=== PATIENT | female | born 1940 | race Caucasian/White ===

== ENCOUNTER 2017-02-01 10:43 | Inpatient (IN) | payer OTHER, BC ==
[2017-01-29 14:45] VITALS: BMI 37.8
[2017-02-01] MEDS ORDERED: BUPIVACAINE HCL/PF 0.5% (5MG/ML) 10 ML VIAL ONE (13:11)
[2017-02-01] MEDS ORDERED: PROPOFOL 20 ML ONE (13:23)
[2017-02-01] MEDS ORDERED: ROCURONIUM BROMIDE 50 MG/5 ML VIAL ONE (13:24)
[2017-02-01] MEDS ORDERED: MIDAZOLAM HCL 2 MG/2 ML SINGLE DOSE VIAL ONE (13:24)
--- NOTE | 2017-02-01 13:29 | HP ---
Admitting History and Physical - Admission Chief Complaint: epigastric pain History of Present Illness: Patient with lap-band for many years. Band now causing vomiting, acid reflux, and band slipped on UGI. History Source: Patient - Past Medical History CULINARY MANAGER: No: Alzheimer's, CVA, Dementia, Migraine, Multiple Sclerosis, Peripheral Neuropathy, Parkinson's, Seizure, Syncope, TIA, Vertigo, Other Cardiovascular: No: AFIB, Aneurysm, Aortic Insufficiency, Aortic Stenosis, CAD, CHF, Deep Vein Thrombosis, HTN, Hyperlipdemia, MD, Mitral Insufficiency, Mitral Stenosis, Murmur, Pulmonary Hypertension, Other Pulmonary: No: Asthma, Bronchitis, Cancer, COPD, O2 Dependent, Pneumonia, Previously Intubated, Pulmonary Embolus, Pulmonary Fibrosis, Sleep Apnea, Other Gastrointestinal: No: Ascites, Cancer, Constipation, Crohn's Disease, Diverticulitis, Diverticulosis, Esophageal Varices, Gastritis, GERD, GI Bleed, Hemorrhoids, Hiatal Hernia, Inflamatory Bowel Disease, Irritable Bowel Disease, Pancreatitis, Peptic Ulcer Disease, Ulcerative Colitis, Other Hepatobiliary: No: Cirrhosis, Cholelithiasis, Cholecystitis, Choledocholithiasis , Hepatitis A, Hepatitis B, Hepatitis C, Other Renal/: No: Renal Failure, Renal Inusuff, BPH, Cancer, Hematuria, Hemodialysis , Neurogenic Bladder, Renal Calculi, UTI, Other Reproductive: No: Ectopic , Endometriosis, Fibroids, PID, Polycystic Ovary Syndrome, Postmenopausal, Other ...: No Heme/Onc: No: Anemia, B12 Deficiency, Bleeding Disorder, Cancer, Current Chemotherapy, Current Radiation Therapy, Hemochromatosis, Hypercoaguable State, Myeloproliferative Synd, Sickle Cell Disease, Sickle Cell Trait, Thrombocytopenia, Other Infectious Disease: No: AIDS, C-Diff, Herpes Zoster, HIV, MRSA, STD's, Tuberculosis, VREF, Other Psych: No: Addictions, Anxiety, Bipolar, Depression, Panic, Psychosis, Schizophrenia, Other Musculoskeletal: Yes: Osteoarthritis Rheumatology: No: Fibromyalgia, Gout, Lupus, Rheumatoid Arthritis, Sarcoidosis, Vasculitis, Other ENT: No: Allergic Rhinitis, Sinusitis, Other Endocrine: No: Melcher [place]'s Disease, [place]'s Disease, Diabetes Insipidus, Diabetes Mellitus, Hyperparathyroidism, Hyperthyroidism, Hypothyroidism, Osteopenia, SIADH, Other Dermatology: No: Basal Cell, Cellulitis, Eczema, Melanoma, Psoriasis, Squamous Cell, Other Additional Past Medical History: Pt with hypertension, thyroid nodule - Past Surgical History Past Surgical History: No: None, AAA Repair, AICD, Amputation, Appendectomy, Arthrosocopy (I- Malfunctioning gastric band secondary to slippage GERD Vomiting P- Or for removal of Gastric Band plus subcutaneous port), AV Fistula/ Graft, Bariatric Surgery, Breast Biopsy, Bypass, CABG, Carotid Endarterectomy, Cataract Removal, Cholecystectomy, Colectomy, Colonoscopy, Colostomy, Craniotomy , , Cystectomy, Hernia Repair, Hysterectomy, Ileal Conduit, Ileosotomy , Joint Replacement, Kidney Transplant, Laminectomy, Liver Transplant, Mastectomy, Nephrectomy, Oopherectomy, Orchiectomy, Permanent Pacemaker, Prostatectomy, Splenectomy, Stent, Thoracotomy, TURP, Tonsillectomy, Tubal Ligation, Upper Endoscopy, Valve Replacement, Vasectomy, Vein Stripping/Ligation - Smoking History Smoking history: Never smoked - Alcohol/Substance Use Hx Alcohol Use: No Home Medications - Allergies Allergies/Adverse Reactions: Allergies Allergy/AdvReac Type Severity Reaction Status Date / Time ibuprofen [From Motrin] Allergy Verified 02/01/17 11:34 - Home Medications Home Medications: Ambulatory Orders Aspirin [ASA -] 81 mg PO DAILY 01/29/17 Cholecalciferol (Vitamin D3) [Vitamin D3] 50,000 unit PO WEEKLY 01/29/17 Meclizine HCl 12.5 mg PO PRN PRN 01/29/17 Meloxicam [Mobic] 7.5 mg PO PRN 01/29/17 Oxycodone HCl/Acetaminophen [Percocet 10-325 mg Tablet] 1 each PO PRN PRN Acetaminophen [Tylenol] 650 mg PO PRN PRN 02/01/17 Furosemide [Lasix] 20 mg PO PRN PRN 02/01/17 Multivitamin/Iron/Folic Acid [Centrum Women Tablet] 1 each PO DAILY 02/01/17 Physical Examination Vital Signs: Vital Signs Temperature 97.8 F 02/01/17 11:27 Pulse Rate 96 H 02/01/17 11:27 Respiratory Rate 20 02/01/17 11:27 Blood Pressure 151/88 02/01/17 11:27 O2 Sat by Pulse Oximetry (%) 95 02/01/17 11:27
[2017-02-01] MEDS ORDERED: DEXAMETHASONE SOD PHOSPHATE 4 MG/1 ML VIAL ONE (13:32)
[2017-02-01] MEDS ORDERED: DESFLURANE GAS 240 ML BOTTLE IH ONE (13:43)
[2017-02-01] MEDS ORDERED: ceFAZolin SODIUM 1 GM VIAL ONE (13:47)
[2017-02-01] MEDS ORDERED: ceFAZolin SODIUM 1 GM VIAL IVPB ONE (13:47)
[2017-02-01] MEDS ORDERED: SODIUM CHLORIDE 0.9% P/F 10 ML VIAL IJ ONE ×2 (13:47→13:57)
[2017-02-01] MEDS ORDERED: PHENYLEPHRINE HCL 10 MG/1 ML SINGLE DOSE VIAL ONE (13:54)
[2017-02-01] MEDS ORDERED: ISOSULFAN BLUE 10 MG/ML VIAL SQ ONE (14:44)
[2017-02-01] MEDS ORDERED: BUPIVACAINE HCL/PF 0.5% (5MG/ML) 10 ML VIAL IJ ONE ×2 (14:49→16:11)
[2017-02-01] MEDS ORDERED: NEOSTIGMINE METHYLSULFATE 0.5 MG/ML - 10 ML MDV ONE (16:05)
[2017-02-01] MEDS ORDERED: ACETAMINOPHEN 325 MG TABLET (FP) PO PRN ×3 (16:24→17:19)
[2017-02-01] MEDS ORDERED: PROMETHAZINE HCL 50 MG/1 ML AMP IM PRN (16:24)
[2017-02-01] MEDS ORDERED: ONDANSETRON 4 MG/2 ML VIAL IVPB PRN (16:24)
[2017-02-01] MEDS ORDERED: TRIMETHOBENZAMIDE HCL 200MG/2ML INJ IM PRN (16:24)
[2017-02-01] MEDS ORDERED: OXYCODONE/APAP 5/325MG COMBO TABLET PO PRN ×2 (16:29→16:30)
[2017-02-01] MEDS ORDERED: DEXTROSE 5%-0.45% SALINE 1,000 ML IV SCH (16:30)
[2017-02-01] MEDS ORDERED: ONDANSETRON 4 MG/2 ML VIAL IVPUSH PRN (16:34)
[2017-02-01] MEDS ORDERED: HYDROmorphone HCL CARPU-JECT 1 MG/1 ML DISP.SYRIN IVPUSH PRN (16:34)
[2017-02-01] MEDS ORDERED: ACETAMINOPHEN 1000 MG/100 ML VIAL (NON FORMULARY) IVPB ONE (16:35)
[2017-02-01] MEDS ORDERED: LACTATED RINGERS SOLUTION 1,000 ML IV SCH (16:45)
[2017-02-01] MEDS ORDERED: oxyCODONE HCL 5 MG TABLET PO PRN (17:15)
[2017-02-01 18:30] LABS: CALCIUM 8.8 mg/dL (8.5-10.1); COCKROFT - GAULT 74.205
[2017-02-01 18:36] LABS: MCH 30.1 pg (25.7-33.7); MCHC 33.2 g/dl (32.0-36.0); MEAN CELL VOLUME 90.7 fl (80-96); MEAN PLT VOLUME 9.3 fl (7.5-11.1); PLATELET COUNT 205 K/MM3 (134-434); RDW 14.2 % (11.6-15.6); WHITE BLOOD COUNT 10.5 K/mm3 (4.0-10.0)
[2017-02-01] MEDS: oxyCODONE HCL 5 MG TABLET PO PRN ×2 (20:01→23:56)
[2017-02-01] MEDS: FAMOTIDINE 20 MG/50 ML IVPB 50 ML IVPB SCH (21:07)
[2017-02-02 09:20] VITALS: BP 114/69; PULSE 96; TEMP 98.1
[2017-02-02] MEDS: FAMOTIDINE 20 MG/50 ML IVPB 50 ML IVPB SCH (09:41)
--- NOTE | 2017-02-02 10:10 | PN ---
Progress Note (short form) - Note Progress Note: Anesthesia postop note 76y/o F s/p GA for removal of gastric band POD#1, vss, aaox3, no complaints, pain well controlled No anesthesia complications.
--- NOTE | 2017-02-02 14:50 | OP ---
DATE OF OPERATION: 02/01/2017 PREOPERATIVE DIAGNOSES: 1. Epigastric pain. 2. Vomiting. 3. Gastroesophageal reflux disease. 4. Mechanical complication of implantable device secondary to slipped gastric band. 5. Hypertension. POSTOPERATIVE DIAGNOSES: 1. Epigastric pain. 2. Vomiting. 3. Gastroesophageal reflux disease. 4. Mechanical complication of implantable device secondary to slipped gastric band. 5. Hypertension. 6. Abdominal adhesions. 7. Fibrous capsule around the stomach. PROCEDURE PERFORMED: 1. Laparoscopic removal of gastric band plus subcutaneous port component. 2. Laparoscopic lysis of adhesions. 3. Excision of fibrous capsule around the stomach. 4. Diagnostic laparoscopy. OPERATING SURGEON: Scotty Kovacs MD SALES AND SERVICE CONSULTANT: YINKA Colbert ANESTHESIA: General. OPERATIVE PROCEDURE: The patient was brought in to the operating room, placed on the OR table in supine position. All precautions were taken initially including padding for the back and the feet, and Venodyne boots were placed on both lower extremities. At that point, the abdomen was prepped and draped in the usual manner. A Veress needle was placed in the left upper quadrant, and pneumoperitoneum was established. A number 12 bladeless trocar was placed in the left upper quadrant. Through that trocar, a laparoscopic camera was placed. Under direct vision, number 12 bladeless trocar was placed to the left costal margin, and a number 5 bladeless trocar in the midline above the umbilicus, and a number 5 bladeless trocar in the right upper quadrant. At that point a Kika liver retractor was then placed at the epigastrium to retract the left lobe of the liver. The patient was then placed in a 20-degree reverse Trendelenburg position. There were adhesions noted over the band tubing leading to the band around the stomach. These adhesions, which were omentum, were dissected off the band tubing with the electrocautery. At this point, the adhesions over the band were then dissected on the lesser curvature of the band. This continued all the way until the band on the lesser curvature was now completely free. At this juncture, the professional nursing assistant surgeon retracted the stomach to the patient's left side as the operating surgeon took the band, retracted it to the patient's right side. The scar tissue and the adhesions over the band on the greater curvature were now dissected until the band was in full view. The band was then cut near its buckle and pulled from around the stomach and sent off the field to Pathology as a specimen. Attention was now directed to the fibrous capsule around the stomach. With the fibrous capsule lifted up, laparoscopic scissors was gently placed under the fibrous capsule and used to split the fibrous capsule from inferior to superior. This continued on the anterior surface, and then the fibrous capsule was peeled off on the lesser and greater curve until the entire anterior surface was free of all scar tissue. There was still some dilated stomach above where the band had been before, even with fibrous capsule removed. The stomach was lifted up, and posteriorly there was noted to be some extra stomach. This was then pulled down so that the stomach, which had been herniated above the band site, was now pulled lower and in proper position. At this juncture, Anesthesia placed methylene blue into the NG tube, and no sign of methylene blue was seen coming from the stomach wall. In order to decompress the stomach, Anesthesia inserted a number 36 bougie with suction holes. The bougie was placed past the area of the band, into the distal stomach, and then placed on suction until the stomach was now suctioned free. It should be noted that also, along with methylene blue, Anesthesia inserted air, which inflated the stomach and with saline placed around the stomach in the area where the band was, no signs of bubbles, and so no signs of any stomach perforation. At this juncture, under direct vision, all trocars were removed, and pneumoperitoneum was released. The left upper quadrant port site was extended laterally, and dissection continued with electrocautery down to the port on the left anterior rectus muscle. The fibrous capsule around the port was now dissected, and the port was removed from the left anterior rectus muscle and sent off the field to Pathology as specimen. At this point, all trocar sites received 0.25% Marcaine, were closed with 4-0 Biosyn in subcuticular fashion on the skin. Where the port was, the subcutaneous tissue was closed with 3-0 Vicryl in interrupted fashion, followed by 4-0 Biosyn in subcuticular fashion. Dressings were applied. Patient awoken from anesthesia and transferred out of the operating room to the recovery room in stable condition. ANESTHESIA: General. SURGEON: Scotty Kovacs MD SALES AND SERVICE CONSULTANT: YINKA Colbert EXPECTED BLOOD LOSS: 50 mL. Patient transferred to the recovery room in stable condition. Fina GARCIA/[id number]
--- NOTE | 2017-02-03 14:50 | PATH ---
Surgical Pathology Report Patient Name: ASIYA RADFORD [facility]. Rec. #: [id number] /Age/Gender: 1940 (Age: 76) / F Account: [id number] Location: [address] [place] [address] Taken: 02/01/2017 Received: 02/02/2017 Reported: 02/03/2017 Physicians: Scotty Kovacs M.D. Specimen(s) Received A: FIBROUS CAPSULE AROUND STOMACH B: OLD GASTRIC BAND Clinical History Slipped gastric band, vomiting and reflux Final Diagnosis A. FIBROUS CAPSULE AROUND STOMACH: BENIGN DENSE FIBROCONNECTIVE TISSUE WITH FOCAL CHRONIC INFLAMMATION. B. OLD GASTRIC BAND, REMOVAL: SECURITY ADMINISTRATOR (GROSS EXAM). Electronically Signed Chalino Pires M.D. Gross Description A. Received in formalin labeled "fibrous capsule around stomach" are 2 blanton soft tissue fragments measuring 1.0 x 0.3 x 0.1 cm and 1.7 x 0.9 x 0.1 cm, consistent with portions of a fibrous capsule. The specimens are submitted in toto in one cassette. B. Received fresh labeled "old gastric band" is a 3.7 cm in diameter white, rubbery, circular device with a focal defect, consistent with a gastric band. The gastric band displays an attached 34 cm in length portion of tubing extending from one aspect. Also received within the same container is a 3 cm in diameter x 1.5 cm in depth white, circular device, consistent with a port. The port displays a 14.5 cm in length portion of tubing extending from one aspect. No soft tissue is present. No sections are submitted, gross only. /02/02/2017 [facility]02/02/2017
== END 2017-02-02 12:15 | disposition home or self-care (01) | DRG 337 ==
LOC: JSAMEDAYSX 10:43 → J6S 19:42
PROVIDERS: ADMIT Surgery; ATTEND Surgery
PROC: 0DNW4ZZ Release Peritoneum, Percutaneous Endoscopic Approach (ICD-10-PCS; 2017-02-01)
PROC: 0DP64CZ Removal of Extraluminal Device from Stomach, Percutaneous Endoscopic Approach (ICD-10-PCS; principal; 2017-02-01 13:00)
DX: K95.09 Other complications of gastric band procedure (principal); K21.9 Gastro-esophageal reflux disease without esophagitis; I10 Essential (primary) hypertension; R11.10 Vomiting, unspecified; Y83.8 Other surgical procedures as the cause of abnormal reaction of the patient, or of later complication, without mention of misadventure at the time of the procedure; K66.0 Peritoneal adhesions (postprocedural) (postinfection)
CPT/HCPCS: 36415; 74241-TC; 80048; 85027; 88300-TC; 88304-TC; 94010; 94760